=== PATIENT | female | born 1955 | race African-American/Black ===

== ENCOUNTER 2020-10-02 16:06 | Inpatient (IN) ==
[2020-10-02 17:08] LABS: Basophils % 0.4 % (0.0-0.8); Hematocrit 31.8 VOL% (35.7-47.0); Hemoglobin 10.1 GM/DL (12.0-16.0); Immature Granulocytes % 4.7 %; Immature Granulocytes Absolute 0.33 #; Lymphocytes # 0.2 10*3/uL (1.4-4.0); Mean Corpuscular HGB Conc 31.8 GM/DL (32-36); Mean Corpuscular Volume 93.3 FL (87-102); Mean Platelet Volume 10.7 FL (9.6-12.0); Monocytes % 11.3 % (1.7-12.7); Neutrophils % 80.6 % (38.7-73.9); Platelet Count 160 T/CUMM (130-400); Red Blood Count 3.41 MC/CUMM (3.8-5.5); White Blood Count 7.1 T/CUMM (4-12)
[2020-10-02 17:29] LABS: Albumin 3.1 G/DL (3.4-5.0); Bilirubin,Total 0.4 MG/DL (0.2-1.0); Osmolality,Calculated 272.2 MOS/KG (273-304); Potassium 3.6 MMOL/L (3.5-5.1)
[2020-10-02 17:46] LABS: Bilirubin,Urine Negative (Negative); Blood, Urine Negative (Negative); Glucose,Urine (UA) 50 mg/dL (Negative); Ketones,Urine Negative (Negative); Mucus,Urine Occasional /LPF (Occasional); Nitrite,Urine Negative (Negative); Protein,Urine 30 MG/DL; RBC,Urine 3 /HPF (0-4); Urine Appearance CLEAR (Clear); Urine Color Yellow (Yellow); Urine Specific Gravity 1.019 (1.001-1.035); WBC,Urine 2 /HPF (0-6)
[2020-10-02] MEDS ORDERED: SODIUM CHLORIDE 0.9% 1,000 ML IV STA ×2 (17:58→18:17)
[2020-10-02] MEDS ORDERED: LEVOFLOXACIN INJ 500 MG in PREMIX 1 EACH IV STA (18:17)
[2020-10-02] MEDS ORDERED: ENOXAPARIN 30 MG/0.3 ML SYRINGE SUBCUT STA (18:21)
[2020-10-02] MEDS ORDERED: ZALEPLON 5 MG CAPSULE PO PRN (18:33)
[2020-10-02] MEDS ORDERED: ALBUTEROL/IPRATROPIUM 3 ML NEB RESP TX PRN (18:33)
[2020-10-02] MEDS ORDERED: ACETAMINOPHEN 325 MG TABLET PO PRN (18:33)
[2020-10-02] MEDS ORDERED: ONDANSETRON 4 MG/2 ML VIAL IV PRN (18:33)
[2020-10-02] MEDS ORDERED: DEXTROSE 50% 25 GM/50 ML VIAL IV PRN ×2 (18:33)
[2020-10-02] MEDS ORDERED: GLUCAGON 1 MG VIAL IM PRN ×2 (18:33)
[2020-10-02] MEDS: INSULIN REGULAR 100 UNIT/ML SUBCUT SCH (21:47)
[2020-10-02] MEDS: levETIRAcetam 500 MG TABLET PO SCH (21:47)
[2020-10-02] MEDS ORDERED: ENOXAPARIN 80 MG/0.8 ML SYRINGE SUBCUT ONE (23:30)
[2020-10-03 06:06] LABS: Basophils % 0.2 % (0.0-0.8); Eosinophils % 0.4 % (0.00-10.9); Hematocrit 27.9 VOL% (35.7-47.0); Hemoglobin 8.7 GM/DL (12.0-16.0); Immature Granulocytes % 4.3 %; Immature Granulocytes Absolute 0.24 #; Lymphocytes # 0.3 10*3/uL (1.4-4.0); Lymphocytes % 6.1 % (21.3-54.2); Mean Corpuscular HGB Conc 31.2 GM/DL (32-36); Mean Corpuscular Volume 93.6 FL (87-102); Mean Platelet Volume 11.2 FL (9.6-12.0); Monocytes % 15.4 % (1.7-12.7); Neutrophils % 73.6 % (38.7-73.9); Platelet Count 165 T/CUMM (130-400); Red Blood Count 2.98 MC/CUMM (3.8-5.5); Red Cell Distribution Width 15.9 % (9.3-17.3); White Blood Count 5.6 T/CUMM (4-12)
[2020-10-03 06:40] LABS: Albumin 2.5 G/DL (3.4-5.0); Bilirubin,Total 0.6 MG/DL (0.2-1.0); Calcium 9.4 MG/DL (8.5-10.1); Osmolality,Calculated 273.4 MOS/KG (273-304); Potassium 3.8 MMOL/L (3.5-5.1); Total Protein 5.7 G/DL (6.4-8.2)
[2020-10-03] MEDS: ATORVASTATIN 80 MG TABLET PO SCH (08:25)
[2020-10-03] MEDS: FAMOTIDINE 20 MG TABLET PO SCH (08:25)
[2020-10-03] MEDS: predniSONE 10 MG TABLET PO SCH (08:25)
[2020-10-03] MEDS: PANTOPRAZOLE 40 MG TABLET PO SCH (08:26)
[2020-10-03] MEDS: ACETAMINOPHEN 325 MG TABLET PO SCH (08:26)
[2020-10-03] MEDS: INSULIN REGULAR 100 UNIT/ML SUBCUT SCH ×4 (08:26→21:37)
[2020-10-03] MEDS: APIXABAN 5 MG TABLET PO SCH ×2 (08:26→21:36)
[2020-10-03] MEDS: TACROLIMUS 0.5 MG CAPSULE PO SCH (08:26)
[2020-10-03] MEDS: levETIRAcetam 500 MG TABLET PO SCH ×2 (08:26→21:39)
[2020-10-03] MEDS ORDERED: TACROLIMUS 0.5 MG CAPSULE PO SCH (19:00)
[2020-10-03] MEDS ORDERED: LEVOFLOXACIN INJ 750 MG in PREMIX 1 EACH IV SCH (21:00)
[2020-10-04 05:48] LABS: Basophils % 0.5 % (0.0-0.8); Eosinophils % 0.7 % (0.00-10.9); Hematocrit 29.2 VOL% (35.7-47.0); Hemoglobin 8.8 GM/DL (12.0-16.0); Immature Granulocytes % 5.1 %; Immature Granulocytes Absolute 0.22 #; Lymphocytes # 0.4 10*3/uL (1.4-4.0); Lymphocytes % 9.7 % (21.3-54.2); Mean Corpuscular HGB Conc 30.1 GM/DL (32-36); Mean Corpuscular Volume 94.8 FL (87-102); Mean Platelet Volume 10.5 FL (9.6-12.0); Monocytes % 13.6 % (1.7-12.7); Neutrophils % 70.4 % (38.7-73.9); Platelet Count 201 T/CUMM (130-400); Red Blood Count 3.08 MC/CUMM (3.8-5.5); Red Cell Distribution Width 15.9 % (9.3-17.3); White Blood Count 4.3 T/CUMM (4-12)
[2020-10-04 06:03] LABS: Calcium 9.6 MG/DL (8.5-10.1); Osmolality,Calculated 274.4 MOS/KG (273-304); Potassium 3.6 MMOL/L (3.5-5.1)
[2020-10-04 06:19] LABS: Band Neutrophils 1 % (0-10); Eosinophils 1 % (0-10); Lymphocytes 10 % (20-55); Platelet Estimate Normal; Segmented Neutrophils 74 % (50-85); Total Cells Counted 100
[2020-10-04 06:20] LABS: Anisocytosis 1+; Burr Cells Few; Hypersegmented Neutrophil 1+; Macrocytosis 1+
[2020-10-04] MEDS: INSULIN REGULAR 100 UNIT/ML SUBCUT SCH ×2 (07:42→13:31)
[2020-10-04] MEDS: levETIRAcetam 500 MG TABLET PO SCH (08:37)
[2020-10-04] MEDS: PANTOPRAZOLE 40 MG TABLET PO SCH (08:39)
[2020-10-04] MEDS: APIXABAN 5 MG TABLET PO SCH (08:39)
[2020-10-04] MEDS: FAMOTIDINE 20 MG TABLET PO SCH (08:39)
[2020-10-04] MEDS: predniSONE 10 MG TABLET PO SCH (08:39)
[2020-10-04] MEDS: TACROLIMUS 0.5 MG CAPSULE PO SCH (08:39)
[2020-10-04] MEDS: ATORVASTATIN 80 MG TABLET PO SCH (08:40)
[2020-10-04] MEDS: ACETAMINOPHEN 325 MG TABLET PO SCH (08:40)
[2020-10-04] MEDS ORDERED: POTASSIUM CHLORIDE 20 MEQ TABLET PO ONE (08:45)
[2020-10-04] MEDS ORDERED: MAGNESIUM SULF RIDER 2 GM in PREMIX 1 EACH IV ONE (08:45)
[2020-10-04 11:58] VITALS: BP 110/69
[2020-10-04] MEDS ORDERED: APIXABAN 5 MG TABLET PO SCH (21:00)
== END 2020-10-04 13:42 | disposition home or self-care (01) | DRG 175 ==
LOC: N.ED 16:06 → SUATTDRO 18:33 → N.EDINP 18:33 → N.5E 20:34
PROVIDERS: ADMIT Phlebology; ATTEND Phlebology